=== PATIENT | male | born 1935 | race Caucasian/White ===

== ENCOUNTER → 2022-02-18 14:04 | Outpatient (BNVA) | payer MEDICARE, BC, SELFPAY | PROVIDERS: PCP Nurse Practitioner Gerontology; Visit Provider Psychiatry & Neurology Neurology | DX: G25.81 Restless legs syndrome (principal); G47.61 Periodic limb movement disorder; G25.0 Essential tremor | CPT/HCPCS: 99212 ==

== ENCOUNTER → 2023-02-10 10:47 | Outpatient (BNVA) | payer MEDICARE, BC, SELFPAY | PROVIDERS: PCP Nurse Practitioner Gerontology; Visit Provider Psychiatry & Neurology Neurology | DX: G25.81 Restless legs syndrome (principal); G47.61 Periodic limb movement disorder; G25.0 Essential tremor | CPT/HCPCS: 99212 ==

== ENCOUNTER 2024-01-14 15:00 | Outpatient (AMB) | payer MEDICARE, BC, SELFPAY ==
[2024-01-14 15:07] VITALS: BP 130/68; PULSE 88; RESP 16; O2SAT 94; BMI 23.8
--- NOTE | 2024-01-14 15:07 | A.OFFVIS_ITS ---
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 Safety Consultant Required: No Allergies No Known Allergies Allergy (Verified 01/14/24 15:07) Medication List - Last Reconciled 01/14/24 by Maryanne Valencia MD aspirin (Adult Low Dose Aspirin) 81 mg PO DAILY gabapentin 100 mg PO BID metoprolol succinate ER 12.5 mg PO DAILY pravastatin 80 mg PO BEDTIME ropinirole 3 mg (3 x 1 mg) PO BID HPI HPI Comments History of Present Illness Details ??Restless leg syndrome. ???Periodic limb movement disorder. ???Familial tremors.. History of present illness: ???88 y/o male patient comes for follow up. ???Pt reports his restless legs is worse. He [facility] the hops[facility] for E [facility] and his doses of ropinirole was changed and he is worse since then, he is taking Requip 1mg, 3 tabs at 6pm and 10 pm, gabapentin 100 mg at 6pm and 10 pm. ???He sleeps well with medications. He could not tolerate primidone and higher doses of gabapentin. ???His tremor does not bother him, he can eat and do ADLs without help. He is doing a lot of house work. 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 samar[place] Social History Alcohol intake: never Patient Tobacco Use Status: Never used Tobacco Physical Exam Vital Signs: Last Vital Signs Pulse 88 01/14/24 15:07 Resp 16 01/14/24 15:07 BP 130/68 01/14/24 15:07 Pulse Ox 94 01/14/24 15:07 Oxygen Delivery Method Room Air 01/14/24 15:07 BMI result Body Mass Index 23.8 Const General: cooperative, healthy appearing and comfortable Nutritional Appearance: average body habitus Orientation/consciousness: patient oriented x3 Neck Other: mild antecollis Neuro Other: mild postural janes UE tremors FFm and foot taps normal Gait- stooped and slow General: patient oriented x3, tone normal, moves all extremities and no focal motor deficits Cognition (Neuro): normal cognition Assessment & Plan Assessment & Plan (1) Restless legs syndrome (RLS): Code(s): G25.81 - Restless legs syndrome (2) Periodic limb movement disorder: Code(s): G47.61 - Periodic limb movement disorder (3) Familial tremor: Code(s): G25.0 - Essential tremor Plan Continue gabapentin 100mg 6pm 10pm, take extra 1/2 to 1 tab a sneeded MRI report from [facility] - 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
== END 2024-01-14 15:48 | disposition home or self-care (01) ==
PROVIDERS: PCP Nurse Practitioner Gerontology; Visit Provider Psychiatry & Neurology Neurology
DX: G25.81 Restless legs syndrome (principal); G47.61 Periodic limb movement disorder; G25.0 Essential tremor
CPT/HCPCS: 99214

== ENCOUNTER → 2024-01-14 15:00 | Outpatient (BNVA) | payer MEDICARE, BC, SELFPAY | PROVIDERS: PCP Nurse Practitioner Gerontology; Visit Provider Psychiatry & Neurology Neurology | DX: G25.81 Restless legs syndrome (principal); G47.61 Periodic limb movement disorder; G25.0 Essential tremor | CPT/HCPCS: 99212 ==

== ENCOUNTER 2024-06-23 11:32 | Emergency (ER) | payer OTHER, SELFPAY ==
[2024-06-23] VITALS (8 sets, daily range): BP systolic 141–154; BP diastolic 60–67; PULSE 50–56; RESP 12–16; TEMP 36.6–37; O2SAT 95–97; BMI 23.6
--- NOTE | ~2024-06-23 | XR_ITS ---
EXAMINATION: XR CHEST CLINICAL INFORMATION: Dizziness COMPARISON: None available. TECHNIQUE: 2 views of the chest were obtained. FINDINGS: No focal consolidation, pulmonary edema, or pleural effusion. Normal cardiomediastinal silhouette with a tortuous descending thoracic aorta. Thoracolumbar scoliosis with moderate to severe multilevel degenerative disc disease. XR/XR chest 2V IMPRESSION: No acute cardiopulmonary findings. Electronically signed by: Lauro Rodriguez MD 06/23/2024 03:26 PM EDT
--- NOTE | ~2024-06-23 | CT_ITS ---
EXAMINATION: CTA OF THE HEAD AND NECK CLINICAL INFORMATION: Right leg weakness. Fall. Dizziness. COMPARISON: None available. TECHNIQUE: Test bolus sequences followed by intravenous administration of 70 mL of Omnipaque 350. Helical imaging was performed in the axial plane from the mediastinum to the skull vertex. Delayed postcontrast imaging of the head was also performed. The data was processed at the certified neurodiagnostic technologist's workstation for generation of MIP sequences. Three-dimensional volume rendered reformatted images were also generated at an offline 3-D workstation. Stenoses are assessed in accordance with NASCET criteria unless otherwise indicated. This CT examination was performed using dose optimization techniques as appropriate, variously including the following: *Automated exposure control *Adjustment of mA and/or kV according to patient size (this includes techniques or standardized protocols for targeted exams where dose is matched to indication/reason for exam; i.e. extremities or head) *Use of iterative reconstruction technique DLP: 20-48 mGy-cm. FINDINGS: CT head: There is no evidence of acute intracranial hemorrhage or territorial infarction. There is no loss of alejandro to white matter differentiation. No abnormal mass effect or midline shift is seen. No extra-axial fluid collections are identified. Mild chronic white matter microangiopathy noted. There is no abnormal enhancement. Moderate diffuse brain parenchymal loss evident with commensurate ex vacuo prominence of the ventricles. The osseous structures and soft tissues are normal. The mastoid air cells and visualized portions of the paranasal sinuses are well aerated. CTA neck: The imaged aortic arch and origins of the great vessels are patent with mild wall calcifications. The common carotid arteries are widely patent. There is a 50% stenosis in the proximal left internal carotid artery distal to the carotid bulb. Mild eccentric lipid rich plaque visible in the right carotid bulb without significant stenotic narrowing. The vertebral arteries opacify normally and are of normal caliber. The thyroid gland is mildly heterogeneous without discrete measurable nodules evident. Extensive multilevel cervical spondylosis evident with a rightward cervical spinal curvature. There is diffuse bony demineralization as well. The imaged portions of the lungs are relatively clear with mild subsegmental atelectatic changes. Emphysematous changes are also present within the lungs. CTA head: The intradural vertebral arteries and basilar artery are normal. The posterior cerebral arteries are widely patent. The internal carotid arteries are patent with mild to moderate wall calcifications. The KEENA and left MCA vascular complexes bilaterally are normal. The distal M1 segment of the right MCA demonstrates fusiform ectasia with a tortuous hairpin turn and focal wall calcification. The right MCA bifurcation distal to this point is normal. There is no abnormal parenchymal or leptomeningeal enhancement. The venous sinuses opacify normally. CT/CT angio head neck IMPRESSION: No hemodynamically significant stenosis or occlusion in the cervical or intracranial vasculature at the level of the [place] of [place]. Approximate 50% stenosis in the proximal left internal carotid artery distal to the carotid bulb. Tortuosity and fusiform ectasia of the distal M1 segment of the right MCA without a visible discrete saccular aneurysm. Electronically signed by: Daniel South MD 06/23/2024 02:59 PM EDT
--- NOTE | 2024-06-23 11:47 | ED_ITS ---
HPI - Dizziness General Chief Complaint: Dizziness Stated Complaint: Dizziness/Fall last night Time Seen by Provider: 06/23/24 12:17 Source: patient Mode of arrival: ambulatory Limitations: no limitations History of Present Illness ED Provider: ELVER MORTON Narrative: 89 yo female with PMH of HTN, HLD, CAD, restless leg syndrome, not on thinners here with c/o last night just feeling off and dizzy no CP/SOB he walking felt acutely dizzy and his legs gave out. He fell no headstrike now notes his right leg feels weaker. He states he was feeling fine prior to this. No med changes, fevers, cough. He states this has never happened before. MD elicited complaint: lightheadedness Onset (ago): day(s) (last night) Timing: sudden onset Severity: moderate Description: lightheadedness and difficulty walking Context: change in body position Exacerbating factors: nothing Relieving factors: nothing Associated symptoms: denies other symptoms Related Data Home Medications ?Medication ?Instructions ?Recorded ?Confirmed aspirin 81 mg tablet,delayed 81 mg PO DAILY 02/10/23 01/14/24 release (Adult Low Dose Aspirin) metoprolol succinate 25 mg 12.5 mg PO DAILY 02/10/23 01/14/24 tablet,extended release 24 hr pravastatin 80 mg tablet 80 mg PO BEDTIME 02/10/23 01/14/24 Previous Rx's ?Medication ?Instructions ?Recorded gabapentin 100 mg capsule 100 mg PO BID #60 caps 02/10/23 ropinirole 1 mg tablet See Rx Instructions PO BID #610 01/18/24 tabs Allergies Allergy/AdvReac Type Severity Reaction Status Date / Time No Known Allergies Allergy Verified 06/23/24 11:50 Review of Systems 2 Review of Systems: Constitutional : No Fever, No Chills, No Fatigue ENT/Mouth : No sore throat, No Rhinorrhea Eyes: No Eye Pain, No Swelling, No Redness Cardiovascular : No Chest Pain, No SOB, No Dyspnea on Exertion Respiratory : No Cough, No Sputum Gastrointestinal : No Nausea, No Vomiting, No Diarrhea, No abdominal Pain Genitourinary : No Dysuria, No Urinary Frequency, No Hematuria, Musculoskeletal : No joint pain, No Myalgias, No Joint Swelling Skin : No Skin Lesions, No rash Neuro : No Weakness, No Numbness, pos Dizziness, no Headache Psych : No Anxiety/Panic, No Depression All other systems reviewed and are negative [facility] Past Medical History Attestation statement: The following information was validated with the patient. 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 Oriented X3. No acute distress. Eyes: Pupils equal, round and reactive to light. ENT: Pharynx normal. Neck: Normal inspection. Neck supple. CVS: Normal heart rate and rhythm. Pulses normal. Respiratory: No respiratory distress. Breath sounds normal. Abdomen: Soft and nontender. Skin: Skin warm and dry. Normal skin color. Normal skin turgor. Extremities: No lower extremity edema. No calf ttp Neuro: Oriented X 3. No motor deficit. No sensory deficit. no ataxia, no drift, slight decreased strength RLE 4+/5 Course Course Course Narrative: This is a Rapid Medical Examination (RME) performed by Aaliyah Hsieh PA-C in triage. Full HPI, ROS, assessment and treatment plan per primary provider in the Main ED. 89 yo male hx of HTN, HDL, RLS here for eval s/p fall last night. reports walking across the room to put something away, began to feel dizzy and tremulous and fell to the ground. felt his legs all out from under him. no head strike. no LOC, recalls the entire event. all symptoms then completely resolved. at present admits to slight head pressure. no other complaints. denies chest pain, palpitations. + sage in triage - states his HR is typically around 50-60. well appearing, ambulating with steady gait unassisted. exam nonfocal. Plan: labs, ekg, cxr +/- other imaging per primary provider Medications Administered Discontinued Medications Generic Name Dose Route Start Last Admin Trade Name Remy PRN Reason Stop Dose Admin Iohexol 100 ml 06/23/24 13:58 06/23/24 13:58 Iohexol 350 Mg/Ml 100 Ml Infus..Btl IV 06/23/24 13:59 70 ml ONCE ONE Administration Medical Decision Making Medical Decision Making [facility] Narrative: 89 yo female with PMH of HTN, HLD, CAD, restless leg syndrome, not on thinners here with c/o feeling dizzy last night that resolved but did fall denies head trauma or head strike he feels like his right leg isn't as strong now. He has no CP/SOB or GIB at this time will need basic labs, CTA to rule out ICH/signs of stroke. ortho VS. He has no ataxia at this time but on exam mild RLE weakness. Differential Diagnosis Differential Diagnoses: The differential diagnosis associated with the presentation includes dizziness, anemia, dehydration, orthostatic VS, stroke Admission/Observation Consideration of admission/observation: Escalation of care including admission/observation considered refuses admission for further workup such as MRI he is aware could be TIA now states RLE is chronic and this happens all the time he does not want to stay in hospital states he is fine he wants to leave. Lab Data [facility] Lab Attestation statement: I reviewed the patient's lab results. 06/23/24 12:11 06/23/24 12:11 Labs: Lab Results 06/23/24 06/23/24 Range/Units 12:11 14:32 WBC 5.6 (4.8-10.8) X10*3/uL RBC 4.35 L (4.60-5.80) X10*6/uL Hgb 14.1 (14.0-18.0) g/dl Hct 42.2 (42.0-52.0) % MCV 97.0 (80.0-98.0) fL MCH 32.4 (27.0-33.0) pg MCHC 33.4 (31.0-36.0) g/dl RDW 12.9 (11.0-16.0) % Plt Count 130 L (160-400) X10*3/uL MPV 9.9 (9.4-12.4) fL Immature Gran % (Auto) 0.2 (0.0-0.4) % Neut % (Auto) 51.3 (45-73) % Lymph % (Auto) 37.2 (20-40) % [place] % (Auto) 9.5 (2-11) % Eos % (Auto) 1.1 (0-4) % Baso % (Auto) 0.7 (0-2) % Lymph # (Auto) 2.1 (1.2-4.9) X10*3/uL [place] # (Auto) 0.5 (0.1-1.2) X10*3/uL Eos # (Auto) 0.1 (0.0-0.4) X10*3/uL Baso # (Auto) 0.0 (0.0-0.2) X10*3/uL Abs Immat Gran (auto) 0.01 (0.00-0.03) X10*3/uL Absolute Neuts (auto) 2.9 (2.0-8.3) x10*3/uL Absolute Nucleated RBC 0.000 (0.0-0.012) X10*3/uL Nucleated RBC % (auto) 0.0 (0.0-0.2) /100WBC PT 12.3 (10.9-12.4) SEC INR 1.1 (0.9-1.1) Sodium 141 (135-145) mmol/L Potassium 4.4 (3.3-5.1) mmol/L Chloride 105 (96-108) mmol/L Carbon Dioxide 29 (22-29) mmol/L Anion Gap 11 L (12-20) BUN 18 H (9-16) mg/dL Creatinine 1.06 (0.5-1.4) mg/dL Estim Creat Clear Calc 53.8 Estimated GFR > 60 Random Glucose 91 (60-115) mg/dL Calcium 9.8 (8.4-10.2) mg/dL Magnesium 2.1 (1.6-2.6) mg/dL Total Bilirubin 0.6 (0.0-1.0) mg/dL AST 23 (5-37) U/L ALT 16 (0-40) U/L Alkaline Phosphatase 58 (39-117) U/L Troponin I High Sens < 2.7 (<3.5-35.0) ng/L B-Natriuretic Peptide 155 H (<100) pg/mL Total Protein 7.1 (6.5-8.0) g/dL Albumin 4.0 (3.5-5.0) g/dL TSH 0.90 (0.32-4.0) uIU/mL Urine Color Yellow Urine Appearance Clear Urine pH 7.5 (5.0-9.0) Ur Specific [place] <= 1.005 (1.005-1.025) Urine Protein Negative (Neg-Trace) mg/dL Urine Glucose (UA) Negative (Negative) mg/dL Urine Ketones Negative (Negative) mg/dL Urine Blood Negative (Negative) Urine Nitrite Negative (Negative) Ur Leukocyte Esterase Negative (Negative) Independent Interpretation I performed an independent interpretation of an: EKG, Plain X-Ray (normal) and CT Scan (chronic aneurysm) Interpretation: Rate: 56 Rhythm: sinus sage 1st degree AVB [place]: left, LVH Normal P waves. 1st degree avb Normal QRS complex. ST T wave : no ROMMEL qTC: 414 prior studies: no acute ischemia The study has been interpreted contemporaneously by me. . Radiology Impression Discussion of test interpretation with radiology: I have reviewed the radiologist's reading. Discharge Plan Discharge Clinical Impression: Dizziness Patient Disposition: Home, Self-Care Instructions: Dizziness (ED) Additional Instructions: no acute findings you were offered admission for MRI and TIA but declined if your symptoms return you can come back at any time follow up with your doctor next week CTA of neck no acute stroke there is mild carotid disease your doctor can follow up with as outpatient No hemodynamically significant stenosis or occlusion in the cervical or intracranial vasculature at the level of the [place] of [place]. Approximate 50% stenosis in the proximal left internal carotid artery distal to the carotid bulb. Prescriptions: No Action ropinirole 1 mg tablet See Rx Instructions PO BID Qty: 610 6RF Rx Instructions: 3 tabs at 6 pm 4 tabs at 10 pm orally 2 times a day; pravastatin 80 mg tablet 80 mg PO BEDTIME metoprolol succinate 25 mg tablet extended release 24 hr 12.5 mg PO DAILY aspirin [Adult Low Dose Aspirin] 81 mg tablet,delayed release (DR/EC) 81 mg PO DAILY gabapentin 100 mg capsule 100 mg PO BID Qty: 60 6RF Print Language: Latvian
--- NOTE | 2024-06-23 11:50 | ECG_ITS ---
Test Reason : dizzy,fall Blood Pressure : / mmHG Vent. Rate : 056 BPM Atrial Rate : 056 BPM P-R Int : 220 ms QRS Dur : 108 ms QT Int : 430 ms P-R-T Axes : 014 -07 042 degrees QTc Int : 414 ms Sinus bradycardia with 1st degree A-V block with Premature supraventricular complexes Moderate voltage criteria for LVH, may be normal variant ( Sokolow-Nieves , Beto product ) Inferior infarct , age undetermined Abnormal ECG No previous ECGs available Referred By: Beronica Hsieh Electronically Signed By:CANDELARIO SUAREZ
[2024-06-23 12:14] LABS: MANUAL DIFF FLAG NO
[2024-06-23 12:26] LABS: Basophils Percent Auto 0.7 % (0-2); Eosinophils Absolute Auto 0.1 X10*3/uL (0.0-0.4); Eosinophils Percent Auto 1.1 % (0-4); Hematocrit 42.2 % (42.0-52.0); Hemoglobin 14.1 g/dl (14.0-18.0); Imm Gran Abs Auto 0.01 X10*3/uL (0.00-0.03); Imm Gran Pct Auto 0.2 % (0.0-0.4); Lymphocytes Absolute Auto 2.1 X10*3/uL (1.2-4.9); Lymphocytes Percent Auto 37.2 % (20-40); Mean Corpuscular HGB Conc 33.4 g/dl (31.0-36.0); Mean Corpuscular Hemoglobin 32.4 pg (27.0-33.0); Mean Platelet Volume 9.9 fL (9.4-12.4); Monocytes Absolute Auto 0.5 X10*3/uL (0.1-1.2); Monocytes Percent Auto 9.5 % (2-11); Neutrophils Absolute Auto 2.9 x10*3/uL (2.0-8.3); Neutrophils Percent Auto 51.3 % (45-73); Platelet Count 130 X10*3/uL (160-400); Red Blood Count 4.35 X10*6/uL (4.60-5.80); Red Cell Distribution Width 12.9 % (11.0-16.0); White Blood Count 5.6 X10*3/uL (4.8-10.8)
[2024-06-23 12:37] LABS: INTERNATIONAL NORM RATIO 1.1 (0.9-1.1); Prothrombin Time 12.3 SEC (10.9-12.4)
[2024-06-23 12:40] LABS: Alanine Aminotransferase 16 U/L (0-40); Alkaline Phosphatase 58 U/L (39-117); Anion Gap 11 (12-20); Aspartate Amino Transferase 23 U/L (5-37); Bilirubin Total 0.6 mg/dL (0.0-1.0); Blood Urea Nitrogen 18 mg/dL (9-16); Calcium 9.8 mg/dL (8.4-10.2); Carbon Dioxide 29 mmol/L (22-29); Chloride 105 mmol/L (96-108); Creatinine Clr Calc Pharmacy 53.8; Estimated Glomerular Filt Rate > 60; Glucose Random 91 mg/dL (60-115); Magnesium 2.1 mg/dL (1.6-2.6); Potassium 4.4 mmol/L (3.3-5.1); Sodium 141 mmol/L (135-145); Total Protein 7.1 g/dL (6.5-8.0)
[2024-06-23 12:45] LABS: Troponin-I High Sensitivity < 2.7 ng/L (<3.5-35.0)
[2024-06-23 12:46] LABS: B Type Natriuretic Peptide 155 pg/mL (<100)
--- NOTE | 2024-06-23 13:18 | PC.NURSE ---
Pt presents to ED from home, reports at around 7pm last night he had a sudden onset of dizziness that caused him to fall. Denies head hit or LOC. Reports it came on strong and then resolved itself, decided he would come in today for eval. Alert and oriented, breathing even and unlabored, skin warm and dry. No neuro deficits at this time, pt has no pain or complaints. Noted to be sinus sage on front desk monitor.
[2024-06-23] MEDS: iohexoL 350 MG/ML 100 ML INFUS..BTL IV (13:58)
[2024-06-23 14:41] LABS: Appearance Urine Clear; Color Urine Yellow; Glucose Urine UA Negative (Negative); Leukocyte Esterase Urine Negative (Negative); Nitrite Urine Negative (Negative); PH 7.5 (5.0-9.0); Specific Gravity - Urine <= 1.005 (1.005-1.025); Urine Blood Negative (Negative); Urine Ketones Negative (Negative); Urine Protein Negative (Neg-Trace)
== END 2024-06-23 16:37 | disposition home or self-care (01) ==
PROVIDERS: Physician Assistant Medical; Emergency Provider Emergency Medicine
DX: R42 Dizziness and giddiness (principal); I25.10 Atherosclerotic heart disease of native coronary artery without angina pectoris; R00.1 Bradycardia, unspecified; M54.2 Cervicalgia; R06.02 Shortness of breath; G25.81 Restless legs syndrome; I10 Essential (primary) hypertension; Z79.899 Other long term (current) drug therapy
CPT/HCPCS: 36415; 70496; 70498; 71046; 80053; 81003; 83735; 83880; 84443; 84484; 85025; 85610; 93005; 99284; 99285; Q9967

== ENCOUNTER 2024-10-12 07:52 | Outpatient (AMB) | payer MEDICARE, BC, SELFPAY ==
--- NOTE | 2024-10-12 07:54 | A.OFFVIS_ITS ---
Vital Signs 10/12/24 07:55 Height 6 ft 1 in Weight 173 lb BMI 22.8 BP 146/82 H Blood Pressure Location Rt brachial Position Sitting Intake Visit Reasons: 6 Month f/u Intake Note: Patient presents for 6 month follow up. Allergies No Known Allergies Allergy (Verified 10/12/24 07:56) Medication List - Last Reconciled 10/12/24 by Lincoln Joel PA-C aspirin (Adult Low Dose Aspirin) 81 mg PO DAILY ferrous gluconate 324 mg PO DAILY gabapentin 100 mg PO BID metoprolol succinate ER 12.5 mg PO DAILY pravastatin 80 mg PO BEDTIME ropinirole 3 tabs at 6 pm 4 tabs at 10 pm orally 2 times a day; HPI Comments Details: ??89 year old male f/u for Restless leg syndrome, and Periodic limb movement disorder. ? He has a family history of Parkinsons Disease mother and sister. ???Pt reports his restless legs is managed with Ropinirole, he takes 3 tabs at 6pm, and relaxes, if they continues to jump off the floor , muscle spasms, he takes the Ropinirole 1mg PO, 3 tabs again at 10pm. He sleeps well, goes to bed anytime between 10pm and 1am according to his 's schedule. He has been feeling very tired. He couldn't tolerate Gabapentin in the higher doses, so he does take 100mg PO at bedtime if and when he needs it. His tremor does not bother him, he is independent with all ADLs, walks daily 1/2 mile. He does laundry, dusting, puts up curtains for his , threads the needle for sewing, his vision is good he says, he always helps with making the beds and all the house work to include cooking breakfast for his as she is not feeling well. He declines home services and meals on wheels today. He would like to get his blood work completed again as he is anxious about the Iron and Zinc intake which he began about 4 weeks ago, but his legs feel better he thinks with the iron. He says he eats well, his mood fluctuates depending on the day. Memory is stable. Denies constipation. 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 latter day Social History Alcohol intake: never Patient Tobacco Use Status: Never used Tobacco Review of Systems Const All systems reviewed & are unremarkable except as noted in HPI and below Physical Exam Vital Signs: Last Vital Signs BP 146/82 H 10/12/24 07:55 BMI result Body Mass Index 22.8 Const General: cooperative, healthy appearing and comfortable Nutritional Appearance: average body habitus Orientation/consciousness: patient oriented x3 Neck Other: mild antecollis Neuro Other: mild postural jaens UE tremors FFm and foot taps normal Gait- stooped and slow General: patient oriented x3, tone normal, moves all extremities and no focal motor deficits Cognition (Neuro): normal cognition Results Reviewed Results Reviewed: Labs from 06/2024 Assessment & Plan Assessment & Plan (1) Fatigue due to sleep pattern disturbance: Code(s): R53.83 - Other fatigue; G47.9 - Sleep disorder, unspecified Category: Medical (2) Periodic limb movement disorder: Code(s): G47.61 - Periodic limb movement disorder Category: Medical (3) Familial tremor: Code(s): G25.0 - Essential tremor Category: Medical (4) Restless legs syndrome (RLS): Code(s): G25.81 - Restless legs syndrome Category: Medical Plan RLS with PLMD Continue taking Ropinirole as needed 1mg PO daily 3 tablets at 6pm and at 10pm. Complete Labs per patient as he is anxious. Continue taking 400mg magnesium and 200mg Pyridoxine for muscle spasm and RLS. Will f/u in 6months or sooner as needed, you may call us or message us on the portal. Fatigue: Will complete Labs TSH/ B12/ Vit D/ CBC/ CMP Orders: Orders Comprehensive Met. Panel Today G47.9 - Sleep disorder, unspecified, R53.83 - Other fatigue Complete Blood Count no Diff Today G47.9 - Sleep disorder, unspecified, R53.83 - Other fatigue Vitamin B12 and Folate Today G47.9 - Sleep disorder, unspecified, R53.83 - Other fatigue TSH reflex Free T4 Today G47.9 - Sleep disorder, unspecified, R53.83 - Other fatigue Hemoglobin A1c Today G47.9 - Sleep disorder, unspecified, R53.83 - Other fatigue Vitamin D 25-OH Total Today G47.9 - Sleep disorder, unspecified, R53.83 - Other fatigue Ferritin Today G47.9 - Sleep disorder, unspecified, R53.83 - Other fatigue Medications: New magnesium oxide 400 mg PO DAILY 30 tabs 1RF Rest Less Leg Syndrome MDD 400mg PO Daily G47.9 - Sleep disorder, unspecified, R53.83 - Other fatigue pyridoxine (vitamin B6) ER 200 mg PO DAILY 30 tabs 1RF MDD 200mg PO daily G47.9 - Sleep disorder, unspecified, R53.83 - Other fatigue Coding Level of Care Code Est Pt Level 3 (70803) Diagnoses Fatigue due to sleep pattern disturbance R53.83; G47.9 Periodic limb movement disorder G47.61 Familial tremor G25.0 Restless legs syndrome (RLS) G25.81
[2024-10-12 07:55] VITALS: BP 146/82; BMI 22.8
== END 2024-10-12 08:45 | disposition home or self-care (01) ==
PROVIDERS: Absent Provider Physician Assistant Medical; PCP Nurse Practitioner Gerontology; Visit Provider Physician Assistant Medical
DX: R53.83 Other fatigue (principal); G47.9 Sleep disorder, unspecified; G47.61 Periodic limb movement disorder; G25.0 Essential tremor; G25.81 Restless legs syndrome
CPT/HCPCS: 99213

== ENCOUNTER → 2024-10-12 07:52 | Outpatient (BNVA) | payer MEDICARE, BC, SELFPAY | PROVIDERS: Absent Provider Physician Assistant Medical; PCP Nurse Practitioner Gerontology; Visit Provider Psychiatry & Neurology Neurology | DX: R53.83 Other fatigue (principal); G47.9 Sleep disorder, unspecified; G47.61 Periodic limb movement disorder; G25.0 Essential tremor; G25.81 Restless legs syndrome | CPT/HCPCS: 99212 ==

== ENCOUNTER 2025-04-11 12:39 | Outpatient (AMB) | payer MEDICARE, BC, SELFPAY ==
--- NOTE | 2025-04-11 13:07 | MHC.OFFVIS ---
Vital Signs 04/11/25 13:09 Height 6 ft 1 in Weight 178 lb BMI 23.5 BP 140/64 H Blood Pressure Location Lt brachial Position Sitting Pulse 53 Pulse Source Pulse Oximeter Pulse Oximetry (%) 95 Oxygen Delivery Method Room Air Intake Visit Reasons: 6 Month f/u Hospital Insurance Clerk Required: No Accompanied by: Self / Same As Patient Allergies No Known Allergies Allergy (Verified 04/11/25 13:07) HPI Comments Details: 89 year old male is here for a f/u of Restless leg syndrome with Periodic limb movement disorder. ? He has + FH of Parkinsons Disease mother and sister. He is an [employer], with a sick spouse needs services, registered him into the elderly services [facility] database today. Labs are normal and reviewed today. BP is elevated, 140/64. Denies recent falls. L. foot surgical procedure coming up in July 2025. He feels pretty good but says he has allergies, starts to sneeze, coughs and after that he takes zyrtec, everything resolves. Pt reports RLS symptoms are managed well with Ropinirole, he takes 3 tabs at 6pm and if they continue to jump off the floor , lani bang booming sensation he takes an additonal 1mg of Ropinirole, so 4 tablets at 6pm and 3 tablets at 10pm. He sleeps well, goes to bed anytime between 10pm and 1am, sometimes between 2am to 4am. He gets up to drink water and goes to the bathroom 3 or 4 times a night. He aslo takes B6 200mg po daily. He couldn't tolerate Gabapentin 100mg at night, he felt extremely sedated so he stopped taking it. He voice is soft and has an upper extremity tremor though it does not bother him. He is independent with all ADLs, walks daily 1/2 mile, denies difficulties with balance and gait. He does laundry, dusting, threads the needle for sewing, his vision is good he says. He always helps with making the beds and helps with most of the house work to include cooking breakfast for his 88 years old. 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 We discussed elderly services helping him with laundry and cleaning the home weekly, we also signed him up today for meals on wheels. He Denies constipation, has a BM daily. He says he eats well, his mood fluctuates depending on the day and his memory is stable. 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 Const General: cooperative, healthy appearing and comfortable Nutritional Appearance: average body habitus Orientation/consciousness: patient oriented x3 Eyes Pupils: Equal, round and reactive pupils present Neck Other: mild antecollis Neuro Other: hypophonia, mild postural janes UE tremors FFM and foot taps normal Gait- antalgic, with stooped posture and slow to ambulate. R. arm swing. Does not use a walker or cane to ambulate. General: patient oriented x3, tone normal, moves all extremities and no focal motor deficits Cranial nerves: Yes Equal, round and reactive pupils present, Yes Normal accommodation reflex present, Yes Normal facial strength present, Yes Midline tongue present, Yes Ability to bilaterally rotate head present and Yes Ability to bilaterally elevate shoulders present Cognition (Neuro): normal cognition Gait exam (Neuro): Antalgic gait present Motor exam (neuro): Abnormal motor strength present and Abnormal muscle tone present Coordination: zmfsek-nr-utsu test normal, rapid alternating movements of the distal upper extremity normal and rapid alternating movements of the distal lower extremity normal Psych Appearance: grossly normal Mental Status: mental status grossly normal Attitude: cooperative Thought content: Normal thought content present Insight: Good insight present (Psych) Judgement: Good judgement present (Psych) Results Reviewed Results Reviewed: 12/2024 Labs reviewed with patient from MD and lab corps. Assessment & Plan Assessment & Plan (1) Periodic limb movement disorder: Code(s): G47.61 - Periodic limb movement disorder Category: Medical (2) Fatigue due to sleep pattern disturbance: Comment: Declined HST and PSG Code(s): R53.83 - Other fatigue; G47.9 - Sleep disorder, unspecified Category: Medical (3) Familial tremor: Comment: Parkinsons? Code(s): G25.0 - Essential tremor Category: Medical (4) Restless legs syndrome (RLS): Code(s): G25.81 - Restless legs syndrome Category: Medical Plan RLS with PLMD, continue taking Ropinirole as needed 1mg PO daily 4 tablets at 6pm and 3 tablets at 10pm. Labs reviewed with patient today and we discussed good BP control. Continue taking 400mg mg and 200mg B6 for muscle spasms. F/u with the elderly services of [facility] for meals on wheels and assistance with home cleaning or laundry services as needed. You will receive an email from the elderly services and a phone call from them and their phone numbers are provided for you also. Will f/u in 6months or sooner as needed. Patient Instructions: Sleep Hygiene provided: set a scheduled bedtime and wake time to help regulate the circadian rhythm and balance the release of pituitary hormones. Sleep in a dark room, temperatures below 68 degrees, and no devices n bed. Limit caffeinated products 6 hours prior to bed, and limit fluids 2-4 hours prior to bed. Gentle night yoga, diffusing essential oils, and playing soft music can be relaxing. He declines sleep study today and sleeps well, though wakes up often for his 's medical needs at night. Patient education provided re: Zyrtec D- decongestion use (with the pseudoephederine), as it can increase blood pressure, being aware of which Zyrtec he is using for his allergies. Coding Level of Care Code Est Pt Level 4 (24588) Diagnoses Periodic limb movement disorder G47.61 Fatigue due to sleep pattern disturbance R53.83; G47.9 Familial tremor G25.0 Restless legs syndrome (RLS) G25.81 Time Spent (min) 29 Comment declines sleep study today, f/u with meals on wheels.
[2025-04-11 13:09] VITALS: BP 140/64; PULSE 53; O2SAT 95; BMI 23.5
--- OUTSIDE RECORDS SUMMARY | 2025-04-11 13:30 | XMS_ITS | Data Portability ---
Author Organization [facility] Address [address] [place] [address] Assessment Encounter Date Assessment Date Assessment LastModified by Organization Details LastModified Time 04/05/2025 04/05/2025 ICD-10: Left painful fourth hammertoe with terminal callosity; hammertoes, hallux valgus CHIEF COMPLAINT: Left fourth toe pain HISTORY OF PRESENT ILLNESS: Candelario is a very pleasant 89-year-old gentleman who was an [employer] who is seen today in follow-up with regard to left forefoot pain. I last saw him in September 2020, 4.5 years ago. He discussed surgery at that time he elected to hold off. He returns today with his . His pain has worsened since I last saw him. 07/13 pain about the tip of his fourth toe. We recall that he has hallux valgus and lesser hammertoes but only finds his left fourth toe to be bothersome. He has a painful toe tip callosity. He has tried using crest pads and other hammertoes sleeves/straps to offload this area. He is here today to discuss surgical treatment. He denies any pain about his great toe. He reports fracturing his left second metatarsal in the . He has difficulty with shoe wear as a result of his left fourth toe pain. Past family, medical, social history and review of systems has been reviewed, updated and signed by me and is located in the patient s chart. He takes metoprolol, pravastatin, aspirin. He is a nonsmoker. He had a myocardial infarction in 1985. 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 PHYSICAL EXAM: General: 6'1 , 180 lbs, healthy appearing, in no acute distress Psych: alert and oriented x3, normal mood Skin: intact without ulceration or lesion, normal turgor Lungs: respirations unlabored Cardiac: heart rate regular, normal peripheral pulses Musculoskeletal: On standing exam, he has moderate to severe hallux valgus and lesser hammertoes. His great toe overlaps his second toe. He has a tender terminal callosity at the tip of the fourth toe and otherwise his forefoot is nontender. He has lesser PIP flexion contractures. His hallux valgus deformity is not passively correctable but there is no pain about his hallux MTP joint. He is distally neurovascularly intact. X-RAYS: Three standing views of the left foot with comparison AP right foot were ordered, obtained and reviewed by me today at [facility], demonstrating severe hallux valgus alignment with lesser hammertoes IMPRESSION: Left painful fourth hammertoe with terminal callosity; hammertoes, hallux valgus PLAN: I discussed these findings with Candelario. I have explained that his severe hallux valgus alignment does cause crowding of his lesser toes. He understands this. His pain is isolated to his fourth toe tip. We therefore agree to proceed with surgery, pending medical and cardiac clearance, consisting of left fourth PIP arthrodesis with pinning and flexor tenotomy. I have counseled him that he may develop callosities in other locations given his severe forefoot deformity and may require further surgery down the road, including hallux MTP arthrodesis, correction of his other hammertoes and metatarsal shortening osteotomies. He understands and agrees with this plan. All of his questions were answered. His K wire will remain in place for 5-6 weeks postoperatively. He will be able to weight-bear in a postop shoe as tolerated. Risks include, but are not limited to, wound healing problems, deep infection, nerve/vessel injury, nonunion, malunion, symptomatic hardware, persistent pain, need for further surgery. The expected postoperative course was outlined in detail. The patient understands the nature and magnitude of this surgery and wishes to proceed. All questions were answered. [email or web address] Not available 04/05/2025 14:20:14 Plan of Treatment Reminders Order Date Submit Date Provider Last Modified By Organization Details Last Modified Time Details Appointments SURGERY @ [facility] 2024 07:30A M Fred Michael MD Not available Not available Not available Lab None recorded. Referral None recorded. Procedures None recorded. Surgeries orthopaed ic surgery (SURG) 2024 025 [email or web address] Not available 04/09/2025 15:50:04 Imaging XR, foot, 3 or more view - room 107 new 3v L foot wb 2024 025 [facility] Office, [address], [address], [place], [address], 04/05/2025 14:06:42 Medication Orders None recorded. Patient TargetsNo targets recorded. Patient InstructionsNo instructions recorded. Reason for Referral None Reported. Results Created Date Observation Date Name Description Value Unit Range Abnormal Flag Note LastModifiedBy Organization Detail LastModifiedTime 04/05/2004/05/2025 XR, foot, 3 or more view http:/ [email or web address] ?Encry pted=s hAaTro YD8dLq bEUv6g %2BXZw aYqtaq 0bqfl% 2Fg9IQ a4ajBk vP9nXo QUaueC m3YtLR FvZlJ J8Peru HZtai3 7e0224 AC0Kla X%2BHU aahKiQ trMwF INTERFACE [facility] [address], [place], [address], 04/05/2025 14:06:42 04/05/20 25 04/05/2025 XR, foot, 3 or more view http:/ [email or web address] ?Encry pted=s hAaTro YD8dLq bEUv6g %2BXZw aYqtaq 0bqfl% 2Fg9IQ a4ajBk vP9nXo QUaueC m3YtLR FvZl J8Peru HZtai3 6s7373 AC0Kla X%2BHU aahKiQ trMwF INTERFACE [facility] [address], [place], [address], 04/05/2025 14:06:44 Result Notes Documentation Provider Name and Address Organization Details Recorded Time Xr, Foot, 3 Or More View : [email or web address]? Encrypted=ymXzSsrSI5aQieX Uv6g%3ZNQbwWnphr7gmui%2Fg 4BBf4zgCzeW0hVhWRomlWv4Gh DYFvMexGAA4kHrASbhf98f968 2XX9WhaM%2BHUaahKiQtrMwF Not Available [facility] 04/05/2025 14:0 6:43 Xr, Foot, 3 Or More View : [email or web address] Encrypted=xaKsGjxCG7kXryW Uv6g%3POBhjCpyuo7rcnp%2Fg 3GIn8exTzuZ9zByKUbjrGq6Si PAIlEnnHKI3kFlBSoxn71o065 7CT6JeaO%2BHUaahKiQtrMwF Not Available [facility] 04/05/2025 14:0 6:45 Problems Name Problem SNOMED Code Status Onset Date Resolution Date Notes Provider Name and Address Organization Details Recorded Time Hallux valgus of left foot Active 025 Fred Michael MD [address], [place], [address], [facility] 14:20:24 Callosity on toe 511002977 Active 025 Fred Michael MD [address], [place], [address], [facility] 14:20:27 Problem Notes None recorded. Medical Equipment None Reported. Vitals None Recorded Social History None recorded. Functional Status None recorded. Mental Status None recorded. Family History Nothing Reported. Medical History No medical history recorded. Past Encounters Encounter ID Performer Location Encounter Start Date Encounter Closed Date Diagnosis/Indication Diagnosis SNOMED-CT Code Diagnosis ICD10 Code Diagnosis Note [id number] [facility] [address] [address] [place] [address] 04/05/2025 13:49:53 04/05/2025 14:21:04 Pain in left foot 1677901006 92748 M79.672 Hammer toe 028013268 M20 .42 Hallux sol sintia of left foot 5283711847 M20.12 Callosity on toe 9215837 01 L84 Health Concerns Section Related Observation LastModified by Organization Detnithya ls LastModified Time None Recorded Concern Status LastModified by Organization Details LastModified Time None Recorded Advance Directives Directive None Recorded Payers Insurance Date Sequence Insurance Name Policy Number Policy Med[place] Covered Member ID Medina Member ID Guarantor Name 04/05/2025 2 [place] [id number] [facility] [id number] [facility] 04/05/2025 1 [place] [facility] [id number] [facility]
== END 2025-04-11 14:05 | disposition home or self-care (01) ==
LOC: HO.HSMS 12:40
PROVIDERS: PCP Nurse Practitioner Gerontology; Visit Provider Physician Assistant Medical
DX: G47.61 Periodic limb movement disorder (principal); R53.83 Other fatigue; G47.9 Sleep disorder, unspecified; G25.0 Essential tremor; G25.81 Restless legs syndrome
CPT/HCPCS: 99214

== ENCOUNTER → 2025-04-11 12:39 | Outpatient (BNVA) | payer MEDICARE, BC, SELFPAY | PROVIDERS: PCP Nurse Practitioner Gerontology; Visit Provider Physician Assistant Medical | DX: G47.61 Periodic limb movement disorder (principal); G47.9 Sleep disorder, unspecified; G25.0 Essential tremor; G25.81 Restless legs syndrome; R53.83 Other fatigue | CPT/HCPCS: 99212 ==